=== PATIENT | female | born 1955 | race Caucasian/White ===

== ENCOUNTER 2020-12-05 09:36 | Outpatient (CLI) | payer BC, MEDICARE, SELFPAY ==
--- NOTE | 2020-12-05 11:30 | NEURO_ITS ---
Impression: # Complains of numbness of left upper extremity; status post cervical fusion. # No Carpal Tunnel Syndrome or ulnar neuropathy. # Normal nerve conduction study. # Normal needle/EMG exam, no neurogenic changes noted. Nerve Conduction Studies Anti Sensory Summary Table Stim Site NR Peak (ms) P-T Amp (?V) Site1 Site2 Delta-P (ms) Dist (cm) Chan (m/s) Left Median Anti Sensory (2-3nd Digit) Wrist 2.9 71.3 Wrist 2-3nd Digit 2.9 14.0 48 Wrist 2.9 87.2 Wrist 2-3nd Digit 2.9 14.0 48 Left Radial Anti Sensory (Base 1st Digit) Wrist 1.6 21.8 Wrist Base 1st Digit 1.6 0.0 Left Ulnar Anti Sensory (5th Digit) Wrist 2.3 38.0 Wrist 5th Digit 2.3 14.0 61 Motor Summary Table Stim Site NR Onset (ms) O-P Amp (mV) Site1 Site2 Delta-0 (ms) Dist (cm) Chan (m/s) Left Median Motor (Abd Poll Brev) Wrist 2.9 2.4 Elbow Wrist 4.4 25.0 57 Elbow 7.3 1.5 Left Ulnar Motor (Abd Dig Minimi) Wrist 2.1 7.8 A Elbow Wrist 5.0 28.0 56 A Elbow 7.1 6.3 F Wave Studies NR F-Lat (ms) L-R F-Lat (ms) Left Median (Mrkrs) (Abd Poll Brev) 27.25 Left Ulnar (Mrkrs) (Abd Dig Min) 27.75 EMG Side Muscle Nerve Root Ins Act Fibs Amp Dur Recrt Comment Left 1stDorInt Ulnar C8-T1 Nml Nml Nml Nml Nml Left Ext Indicis Radial (Post Int) C7-8 Nml Nml Nml Nml Nml Left Ext Digitorum Radial (Post Int) C7-8 Nml Nml Nml Nml Nml Left BrachioRad Radial C5-6 Nml Nml Nml Nml Nml Left PronatorTeres Median C6-7 Nml Nml Nml Nml Nml Left Abd Poll Brev Median C8-T1 Nml Nml Nml Nml Nml MTDD
== END 2020-12-05 09:37 | disposition home or self-care (01) ==
LOC: ANHNEURO 09:40
PROVIDERS: PCP Internal Medicine; Visit Provider Orthopaedic Surgery Hand Surgery
DX: R20.0 Anesthesia of skin (principal); R20.2 Paresthesia of skin; M25.512 Pain in left shoulder
CPT/HCPCS: 95886; 95909

== ENCOUNTER 2021-03-19 10:59 | Outpatient (CLI) | payer MEDICARE, SELFPAY ==
--- NOTE | ~2021-03-19 | US_ITS ---
EXAMINATION: US carotid duplex BI DATE: 03/19/2021 11:51 INDICATION: Skin anesthesia TECHNIQUE: Grayscale, color Doppler, and pulsed Doppler images of the cervical carotid arteries were obtained. The degree of vessel stenosis is placed in one of the following categories: normal, <50%, 5 0-69%, >=70% but less than near-occlusion, near-occlusion, or total occlusion. Note that percent sten osis relative to normal distal artery lumen diameter is indirectly measured from velocity measurement s as described by Obey, et al. Radiology 2003; 229:340-346. Notes: Normal: Peak systolic velocity <125 centimeters/sec and no plaque <50%. Peak systolic velocity <125 ( EDV <40; ICA/CCA PSV ratio <2.0; used these factors only a tandem lesions or low cardiac output or co ntralateral disease) 50-69 %: PSV 125-230 (EDV 40-100; ratio 2-4) >= 70% but less than near occlusion: PSV greater than 230 (EDV > 100; ratio> 4.0) Near Occlusion: PSV that is variable; markedly narrowed lumen Occlusion: Absent flow on color/spectral Doppler and no lumen on bustamante scale. COMPARISON: None. FINDINGS: RIGHT: The right common carotid artery (CCA) peak systolic velocity (PSV) is 85 cm/s. The right internal car otid artery (ICA) PSV is 95 cm/s. The right ICA end-diastolic velocity (EDV) is 19 cm/s. The right IC A/CCA PSV ratio is 1.1. The external carotid artery (ECA) PSV is 85 cm/s. There is antegrade flow in the right vertebral artery. LEFT: The left CCA PSV is 69 cm/s. The left ICA PSV is 103 cm/s. The left ICA EDV is 18 cm/s. The left ICA/ CCA PSV ratio is 1.5. The ECA PSV is 156 cm/s. There is antegrade flow in the left vertebral artery. IMPRESSION: 1. Less than 50% stenosis in the right internal carotid artery by sonographic criteria. 2. Less than 50% stenosis in the left internal carotid artery by sonographic criteria. Reviewed, dictated and finalized at location A. MARKETING DIRECTOR IMPRESSION: 1. Less than 50% stenosis in the right internal carotid artery by sonographic khang johnson. 2. Less than 50% stenosis in the left internal carotid artery by sonographic juan kellogg.
== END 2021-03-19 11:00 | disposition home or self-care (01) ==
PROVIDERS: PCP Internal Medicine; Visit Provider Psychiatry & Neurology Neurology
DX: R20.0 Anesthesia of skin (principal); I65.23 Occlusion and stenosis of bilateral carotid arteries
CPT/HCPCS: 93880

== ENCOUNTER → 2021-06-19 14:08 | Outpatient (CLI) | payer MEDICARE, SELFPAY ==
--- NOTE | ~2021-06-19 | MR_ITS ---
EXAMINATION: MR thoracic spine wo con DATE: 06/19/2021 14:51 INDICATION: Thoracic back pain. TECHNIQUE: Magnetic resonance imaging (MRI) of the thoracic spine was performed without intravenous c ontrast. Sagittal localizer T1-weighted FSE of the cervical spine was obtained. Thoracic spine sequen marisol included sagittal T2-weighted FSE, sagittal T1-weighted FSE, sagittal STIR FSE, and axial T2-weig hted FSE. COMPARISON: None FINDINGS: There is 3 degrees dextrocurvature of thoracic spine. There are changes of anterior fusion procedure from C4 to C6. Vertebral body heights are normal. Intervertebral disc heights are normal an d thoracic spine. The disc does not extend beyond the endplate margins. There is multilevel facet prosper nt osteoarthritis, severe at many levels. On the right, there is moderate neural foraminal stenosis a t T1-T2 and mild neural foraminal stenosis at T8-T9. On the left, there is moderate neural foraminal stenosis at T1-T2 and T2-T3 and mild neural foraminal stenosis at T5-T6, T8-T9, and T10-T11. There is no central canal stenosis. The spinal cord signal intensity is normal. There is a 4.8 cm mass of lef t adrenal gland. IMPRESSION: 1. Mild thoracic spondylosis. 2. 4.6 cm left adrenal mass. The differential diagnosis includes adenoma, metastatic disease, and adr enocortical carcinoma. PET/CT is recommended. Reviewed, dictated and finalized at location E. DER IMPRESSION: 1. Mild thoracic spondylosis. 2. 4.6 cm left adrenal mass. The differential diagnosis includes adenoma, metas tatic disease, and adrenocortical carcinoma. PET/CT is recommended.
== END ==
PROVIDERS: PCP Internal Medicine; Visit Provider Nurse Practitioner Family
DX: M54.6 Pain in thoracic spine (principal); M47.814 Spondylosis without myelopathy or radiculopathy, thoracic region
CPT/HCPCS: 72146

== ENCOUNTER 2023-03-26 15:53 | Outpatient (CLI) | payer MEDICARE, SELFPAY ==
--- NOTE | ~2023-03-26 | XR_ITS ---
EXAMINATION: XR hip LT 2V w AP pelvis DATE: 03/26/2023 16:20 INDICATION: Worsening left hip and groin pain TECHNIQUE: Anteroposterior view of the pelvis and anteroposterior and frog-leg lateral views of the l eft hip were obtained. COMPARISON: None. FINDINGS: Alignment is normal. No fracture or suspected avascular necrosis. Bilateral hip joint spaces are rela tively preserved. Mild osteoarthritis at the bilateral sacroiliac joints. IMPRESSION: 1. Mild bilateral sacroiliac osteoarthritis. Left hip is unremarkable. Reviewed, dictated and finalized at location A. O STUDIO ASSISTANT
== END 2023-03-26 15:54 | disposition home or self-care (01) ==
PROVIDERS: PCP Internal Medicine; Visit Provider Physician Assistant
DX: M25.552 Pain in left hip (principal); M47.818 Spondylosis without myelopathy or radiculopathy, sacral and sacrococcygeal region
CPT/HCPCS: 73502

== ENCOUNTER → 2023-04-22 10:54 | Outpatient (CLI) | payer MEDICARE, SELFPAY ==
--- NOTE | ~2023-04-22 | XR_ITS ---
Right Knee Technique: AP, lateral, and sunrise views were obtained. Clinical History: Pain Findings: No fracture or dislocation is seen. Osseous alignment is anatomic. Joint spaces are preserv ed without degenerative or erosive change. Soft tissues are unremarkable. No joint effusion is seen. Impression: Unremarkable right knee radiographs. Reviewed, dictated and finalized at location . INE SHORTHAND REPORTER Impression: Unremarkable right knee radiographs.
== END ==
PROVIDERS: PCP Internal Medicine; Visit Provider Nurse Practitioner Family
DX: M25.561 Pain in right knee (principal)
CPT/HCPCS: 73560

== ENCOUNTER → 2023-05-13 10:33 | Outpatient (CLI) | payer MEDICARE, SELFPAY ==
--- NOTE | ~2023-05-13 | XR_ITS ---
Left Knee Technique: AP and lateral views were obtained. Clinical History: Pain Findings: No fracture or dislocation is seen. Osseous alignment is anatomic. Joint spaces are preserv ed without degenerative or erosive change. Soft tissues are unremarkable. No joint effusion is seen. Impression: Unremarkable left knee radiographs. Reviewed, dictated and finalized at location . OPE TECHNICIAN Impression: Unremarkable left knee radiographs.
== END ==
PROVIDERS: PCP Nurse Practitioner Family; Visit Provider Nurse Practitioner Family
DX: M25.562 Pain in left knee (principal)
CPT/HCPCS: 73560

== ENCOUNTER → 2023-06-03 11:13 | Outpatient (CLI) | payer MEDICARE, SELFPAY ==
--- NOTE | ~2023-06-03 | XR_ITS ---
AP and lateral views of the left hip Clinical history: Pain Findings: No acute fracture or dislocation is seen. Osseous alignment is anatomic. Left hip joint spa ce is preserved. Soft tissues are unremarkable. Impression: No significant abnormality is seen. Reviewed, dictated and finalized at location M. TIC OUTFITTER Impression: No significant abnormality is seen.
== END ==
PROVIDERS: PCP Orthopaedic Surgery; Visit Provider Nurse Practitioner Family
DX: M25.552 Pain in left hip (principal)
CPT/HCPCS: 73502

== ENCOUNTER 2023-08-11 01:57 | Day surgery (SDC) | payer MEDICARE, SELFPAY ==
[2023-08-10 12:52] VITALS: BMI 29.9
[2023-08-11] VITALS (19 sets, daily range): BP systolic 134–172; BP diastolic 56–90; PULSE 65–82; RESP 11–18; TEMP 36.3; O2SAT 95–98; BMI 29.5
[2023-08-11 09:13] LABS: Basophils Percent Auto 0.3 % (0.2-1.2); Eosinophils Percent Auto 0.5 % (0-4.4); Hematocrit 42.9 % (37.0-47.0); Hemoglobin 14.2 g/dL (12.0-15.0); Immature Granulocyte Absolute 0.02 K/mm3 (0.00-0.031); Immature Granulocyte Percent A 0.2 % (0-0.5); Lymphocytes Absolute Auto 1.54 K/mm3 (0.9-3.2); Lymphocytes Percent Auto 17.5 % (18.3-44.2); Mean Corpuscular HGB Conc 33.1 g/dl (32-36); Mean Corpuscular Hemoglobin 29.5 pg (26-34); Mean Platelet Volume 9.5 fl (7.4-10.4); Monocytes Absolute Auto 0.5 K/mm3 (0.1-0.6); Monocytes Percent Auto 5.2 % (2.6-8.5); Neutrophils Absolute Auto 6.7 K/mm3 (1.3-6.7); Neutrophils Percent Auto 76.3 % (45.5-73.1); Platelet Count Result 328 k/mm3 (150-375); Red Blood Count 4.82 M/mm3 (4.2-5.4); Red Cell Distribution Width 14.2 % (11.5-14.5); White Blood Count 8.8 K/mm3 (4.5-10.0)
[2023-08-11 09:28] LABS: Anion Gap 4 mmol/L (4-12); Blood Urea Nitrogen 12 mg/dL (7-17); Calcium 9.8 mg/dL (8.4-10.2); Carbon Dioxide 28 mmol/L (22-30); Chloride 106 mmol/L (98-107); Estimated CRCL calculation 61 ml/min; Estimated Glomerular Filt Rate > 60; Glucose 108 mg/dL (65-110); Potassium 3.5 mmol/L (3.4-5.0); Sodium 138 mmol/L (137-145)
--- NOTE | 2023-08-11 09:57 | WPDHPUPDATE1 ---
History and Physical Update Update Date/Time: 08/11/23 09:57 History and Physical has been reviewed, including an updated exam of the patient. There are NO changes in the patient's condition. Risks, benefits, and alternatives have been discussed and questions answered. Patient agrees to proceed with procedure.
--- NOTE | 2023-08-11 09:57 | WPDMODSED ---
Moderate Sedation Note-Pt Data Patient Data Diagnosis: Chest pain Present Complaint: Chest pain Procedure to be performed/Plan: Coronary angiography, left heart cath, +/- PCI Allergies Allergy/AdvReac Type Severity Reaction Status Date / Time lisinopril Allergy Intermediate LIPS Verified 08/11/23 09:01 SWELLED montelukast Allergy Intermediate LIPS Verified 08/11/23 09:01 SWELLED diclofenac AdvReac Severe Nausea and Verified 08/11/23 09:01 Vomiting erythromycin base AdvReac Unknown N/V Verified 08/11/23 09:01 Home Medications Medication Instructions Recorded Confirmed Type aspirin 81 mg chewable tablet 81 mg PO DAILY 02/27/21 08/10/23 History carvedilol 12.5 mg tablet 6.25 mg PO BID 02/27/21 08/10/23 History metformin 500 mg tablet 500 mg PO DAILY 02/27/21 08/10/23 History omega-3 fatty acids 1,000 mg 1,000 mg PO DAILY 02/27/21 08/10/23 History capsule (Fish Oil Concentrate) amlodipine 2.5 mg tablet 5 mg PO DAILY 03/26/23 08/10/23 History atorvastatin 10 mg tablet 20 mg PO DAILY 03/26/23 08/10/23 History citalopram 10 mg tablet 20 mg PO DAILY 03/26/23 08/10/23 History pantoprazole 40 mg granules 40 mg PO DAILY 03/26/23 08/10/23 History delayed-release for susp in packet semaglutide 1 mg/dose (2 mg/1.5 1 mg subcut WEEKLY 03/26/23 08/10/23 History mL) subcutaneous pen injector (Ozempic) cetirizine 10 mg tablet (Zyrtec) 10 mg PO DAILY PRN allergies 08/10/23 08/10/23 History ferrous sulfate 325 mg (65 mg 325 mg PO DAILY 08/10/23 08/10/23 History iron) tablet (Iron (ferrous sulfate)) ibuprofen 200 mg tablet 200 mg PO DAILY PRN Pain 08/10/23 08/10/23 History losartan 25 mg tablet 25 mg PO DAILY 08/10/23 08/10/23 History mecobalamin (vitamin B12) 5,000 5,000 mcg PO DAILY 08/10/23 08/10/23 History mcg chewable tablet Current Medications: Active Medications Sodium Chloride (Normal Saline Iv) 500 mls @ 100 mls/hr IV CONT .Q5H TERRY Sedation/Anesthesia: No previous sedation/anesthesia problems (including family history). FOR[facility]LY [facility] Surgical History Surgical History H/O abdominal hysterectomy H/O cervical discectomy History of cataract surgery Family History Family History Father Heart problem Mother Diabetes mellitus Hypertension Heart problem Social History Social History Years smoked: 4 Smoking status: Former smoker Tobacco type: cigarettes Smoking end date: 09/07/23 Alcohol intake: current Alcohol use details: 1-2 drinks/month Substance use: never Lack of Transportation: No Lack of Food: Never True Current Housing: I Have Housing Concerned About Future Housing: No Difficulty Paying Gas/Electric Bills: No Difficulty Paying for Meds: No Currently Unemployed: No Education: High School Diploma/GED Difficulty w/ Childcare or Family Care: No Living arrangements: with family Spiritual care concerns: No Mod Sed Physical Exam Physical Exam Pre Procedural Exam: Normal: Appearance, Heart Rate, Heart Rhythm, Neuro Exam, Abdomen, Extremities and Skin Hours since solid foods: 12 Hours since liquid intake: 8 Mallampati Classification: class III Internal Medicine - PN: Obj Da Vital Signs Vital Signs: Vital Signs - 24 hr 08/11/23 09:03 Temperature 36.3 C L Pulse Rate 76 Respiratory Rate 16 Blood Pressure 161/87 H Pulse Oximetry 97 Oxygen Delivery Room Air Meds/Results Medications: Active Medications Generic Name Dose Route Start Last Admin Trade Name Freq PRN Reason Stop Dose Admin Sodium Chloride 500 mls @ 100 mls/hr 08/11/23 07:00 Normal Saline Iv IV CONT .Q5H TERRY Labs 08/11/23 09:08 08/11/23 09:08 Labs: Laboratory Results - last 24 hr 08/11/23 09:08 WBC 8.8 RBC 4.82 Hgb 14.2 Hct 42.9 MCV 89.0 MCH
--- NOTE | 2023-08-11 09:58 | WPDCARDPROC ---
Cardiac Cath Procedure Note Date of procedure:: 08/11/23 Performing physician:: CATHETERIZATION LABORATORY REPORT Procedure Date: 08/11/2023 President: Keanu eMdeiros M.D., [facility]? Referring Physician: Leander Aguirre M.D. Anesthesia: Versed and Fentanyl were ordered and given in my presence at 10:45, procedure ended at 11:13. Supervision of nurse monitored moderate sedation with Versed and Fentanyl was provided for 28 minutes. Total of Versed 1mg and Fentanyl 50mcg were administered by the Tour Leader RN Alejandrina Velasquez. Pre-op Diagnosis: Coronary artery disease Post-op Diagnosis: 1. Mild-moderate non-obstructive coronary artery disease 2. Severely elevated left ventricular end-diastolic pressure of 40mmHg Procedure(s): 1. Moderate sedation 2. Ultrasound-guided access of the right radial artery 3. Coronary angiography 4. Left heart cath Access Site: Right radial artery Brief History and Clinical Indications: Patient is a 67 year old female with history of nonobstructive coronary artery disease on prior cardiac cath who is referred for [facility] for chest pain. All risks, benefits and alternatives to left heart catheterization with or without percutaneous coronary intervention was discussed at length with the patient. Risk of complications including but not limited to bleeding, infection, arrhythmia, stroke, worsening kidney function, blood loss, groin hematoma, limb loss, emergency coronary artery bypass grafting, and even were discussed with the patient and all questions were answered. The patient understood and wished to proceed. Time out called, patient name, date of , medical record number, allergies, procedure performed, identify President, patient and staff member concurred with accurate data, procedure carried on. Findings: LEFT HEART CATHETERIZATION FINDINGS: 1. Left main: The left main coronary artery is widely patent without any significant obstructive disease. 2. Left anterior descending: The mid LAD has mild 10-20% disease. Otherwise remainder of the LAD has luminal irregularities. The first diagonal branch is a small caliber branch with moderate ostial disease. The second diagonal branch has mild ostial disease with mild disease in the mid portion. The LAD and the diagonal branches have mild luminal irregularities without any significant obstructive angiographic disease. 3. Left circumflex: The left circumflex artery has luminal irregularities. OM-1 has luminal irregularities. OM-2 has mild 30-40% disease in the mid portion. 4. Right coronary artery: The RCA has diffuse mild disease without any significant obstructive angiographic disease. The RCA is the dominant vessel. 5. Left ventricle: A. End-diastolic pressure 40 mmHg. B. LV gram deferred. C. No significant gradient across aortic valve on catheter pullback. Description of Procedure: Informed consent signed and placed in the chart. Patient transferred to laboratory supervisor room. Prepped and draped in usual sterile fashion. 2% lidocaine injected subcutaneously in right wrist area. 22-gauge venipuncture catheter used to access the right radial artery under ultrasound guidance. 6-FR slender sheath placed in right radial artery. Nitroglycerine and Verapamil were given intraarterial through the sheath. Versacore wire advanced under fluoroscopy 5F Tig 4 diagnostic catheter engaged Left Main Coronary Artery. 5F Tig 4 diagnostic catheter engaged Right Coronary Artery Multiple orthogonal angiogram obtained and reviewed 5F Pigtail diagnostic catheter crossed aortic valve to obtain LVEDP, LV angiogram deferred. Hemostasis was achieved by application of TR band. Post Operative Condition: Stable No significant blood loss Disposition: Home Plan: The patient will be monitored in the recovery area. The above findings were discussed with the referring physician. Continue aggressive medical therapy and risk factor modification. ? Keanu Medeiros M.D. I
== END 2023-08-11 16:30 | disposition home or self-care (01) ==
PROVIDERS: PCP Internal Medicine; Visit Provider Internal Medicine
PROC: 4A023N7 Measurement of Cardiac Sampling and Pressure, Left Heart, Percutaneous Approach (ICD-10-PCS; CPT 93452; principal; 2023-08-11 10:00)
DX: I25.10 Atherosclerotic heart disease of native coronary artery without angina pectoris (principal); E78.5 Hyperlipidemia, unspecified; E11.51 Type 2 diabetes mellitus with diabetic peripheral angiopathy without gangrene; I10 Essential (primary) hypertension; F41.9 Anxiety disorder, unspecified; F32.A Depression, unspecified; Z79.82 Long term (current) use of aspirin; Z79.84 Long term (current) use of oral hypoglycemic drugs; Z79.85 Long-term (current) use of injectable non-insulin antidiabetic drugs; Z87.891 Personal history of nicotine dependence
CPT/HCPCS: 36415; 80048; 85025; 93458; C1769; C1887; C1894; J1644; J2250; J2305; J3010; J7040

== ENCOUNTER 2023-12-07 09:30 | Outpatient (RCR) | payer MEDICARE, SELFPAY ==
[2023-12-07 09:40] VITALS: BMI 28.3
[2023-12-07 09:41] VITALS: BMI 28.3
== END 2024-02-28 10:25 | disposition home or self-care (01) ==
LOC: ANHDMC 09:30
PROVIDERS: PCP Internal Medicine; Visit Provider Internal Medicine
DX: E11.9 Type 2 diabetes mellitus without complications (principal); Z71.3 Dietary counseling and surveillance
CPT/HCPCS: 97802

== ENCOUNTER 2024-07-04 10:25 | Outpatient (CLI) | payer MEDICARE, SELFPAY ==
--- NOTE | ~2024-07-04 | MR_ITS ---
EXAMINATION: MR lumbar spine wo con DATE: 07/04/2024 10:55 INDICATION: Low back pain. Lumbar radiculopathy. TECHNIQUE: Magnetic resonance imaging (MRI) of the lumbar spine was performed without intravenous con trast. Sequences included sagittal T2-weighted FSE, sagittal T2-weighted FS FSE, sagittal T1-weighted FSE, and axial T2-weighted FSE. COMPARISON: None FINDINGS: 3 mm retrolisthesis L2 on L3, typical retrolisthesis L3 on L4 and L4 on L5 and 2 mm anterolisthesis L 5 on S1. Minimal likely physiologic anterior wedging at L1 and L2. Remaining vertebral body heights a re normal. There is moderate to severe disc height loss with fibrovascular degenerative endplate chavez ges at L3-L4. Marrow signal is otherwise unremarkable. Moderate disc height loss at L2-L3 and mild di sc height loss at T11-T12, L4-L5 and L5-S1. The conus medullaris terminates at L1-L2. There is normal signal in the caudal spinal cord. Paravertebral soft tissues are unremarkable. The following disc le vels are specifically discussed: T12-L1: The disc does not extend beyond the endplate margin. There is mild bilateral facet joint oste oarthritis. There is no neural foraminal stenosis. There is no central canal stenosis. L1-L2: The disc does not extend beyond the endplate margin. There is right and moderate left facet jose armando int osteoarthritis. There is no neural foraminal stenosis. There is no central canal stenosis. L2-L3: Disc is bulging with annular fissure and small central disc extrusion with disc material exten ding up to 4 mm caudal to the level of the superior endplate of L3. There is mild left facet joint os teoarthritis. There is moderate right and mild to moderate left neural foraminal stenosis. There is m ild central canal stenosis. L3-L4: Disc is bulging with annular fissure and small left paracentral disc extrusion with disc mater ial extending up to 4 mm caudal to the level of superior endplate of L4. There is mild left facet prosper nt osteoarthritis. There is moderate bilateral neural foraminal stenosis. There is mild central canal stenosis. L4-L5: Disc is bulging. There is moderate right and severe left facet joint osteoarthritis. There is moderate bilateral neural foraminal stenosis. There is mild to moderate central canal stenosis with n arrowing of the left and right lateral recesses. L5-S1: Disc is bulging. There is severe bilateral facet joint osteoarthritis. There is mild to modera te bilateral neural foraminal stenosis. There is mild central canal stenosis with mild narrowing of t he lateral recesses, right greater than left. IMPRESSION: 1. Severe lumbar spondylosis. Reviewed, dictated and finalized at location B. TRUCK DRIVER
== END 2024-07-04 10:26 | disposition home or self-care (01) ==
PROVIDERS: PCP Internal Medicine; Visit Provider Nurse Practitioner Family
DX: M47.816 Spondylosis without myelopathy or radiculopathy, lumbar region (principal)
CPT/HCPCS: 72148

== ENCOUNTER 2024-10-06 08:46 | Outpatient (CLI) | payer MEDICARE, SELFPAY ==
--- NOTE | ~2024-10-06 | MR_ITS ---
MRI of the abdomen: Clinical indication: Adrenal lesion. Technique: Coronal SSFSE ARC, WATER:coronal LAVA-FLEX, Coronal 2D FIESTA FatSat, Axial SSFSE BH ARC, Axial 3D DualEcho BH, Axial SSFSE-IR, Axial DWI b=500, Axial 2D FIESTA FatSat, pre and dynamic postco ntrast Axial LAVA ARC, postcontrast Coronal In and Opposed phase LAVA FLEX. Findings: Gallbladder unremarkable. The common bile duct is normal in course and caliber. No filling defects are seen within the CBD. No evidence of intrahepatic biliary ductal dilatation. The pancreati c duct is normal in size. Liver, spleen, pancreas, right adrenal gland, kidneys appear normal. There is a 4.8 x 4.3 cm left adr enal mass, with diffuse signal loss on out of phase images relative to in phase images, most compatib le with benign adenoma. The aorta and the paraaortic regions appear normal. Impression: 4.8 x 4.3 cm left adrenal mass is consistent with benign adenoma. Lesion is also essentially stable s clarence prior thoracic spine MR dated 06/19/2021. Reviewed, dictated and finalized at location . Impression: 4.8 x 4.3 cm left adrenal mass is consistent with benign adenoma. Lesion is als o essentially stable since prior thoracic spine MR dated 06/19/2021.
== END 2024-10-06 08:47 | disposition home or self-care (01) ==
LOC: MICIMG 08:47
PROVIDERS: PCP Internal Medicine; Visit Provider Internal Medicine
DX: E27.9 Disorder of adrenal gland, unspecified (principal)
CPT/HCPCS: 74181